=== PATIENT | female | born 1985 | race Caucasian/White ===

== ENCOUNTER 2016-11-21 20:51 | Emergency (ER) | payer BC ==
[2016-11-21 21:04] VITALS: BP 118/74
--- NOTE | 2016-11-21 21:16 | ER Document Report ---
HPI - HPI Patient complains to provider of: dental pain Onset: Other - Several days Onset/Duration: Gradual Pain Level: 5 Context: 31-year-old female with dental decay is complaining increased pain in the right upper molars. No fever or chills. No facial swelling. Associated Symptoms: None Exacerbated by: Denies Relieved by: Denies Similar symptoms previously: Yes Recently seen / treated by doctor: No - ROS ROS below otherwise negative: Yes Systems Reviewed and Negative: Yes All other systems reviewed and negative - DERM Skin Color: Normal Past Medical History - General Information source: Patient - Social History Smoking Status: Never Smoker Frequency of alcohol use: None Drug Abuse: None Family History: Reviewed & Not Pertinent Patient has suicidal ideation: No Patient has homicidal ideation: No - Medical History Medical History: Negative Renal/ Medical History: Denies: Hx Peritoneal Dialysis Surgical Hx: Negative Vertical Provider Document - CONSTITUTIONAL Agree With Documented VS: Yes Exam Limitations: No Limitations - INFECTION CONTROL TRAVEL OUTSIDE OF THE [place] IN LAST 30 DAYS: No - HEENT HEENT: Normocephalic Notes: Multiple decayed teeth with severe gingivitis top right molars no abscess palpated - NECK Neck: Supple. negative: Lymphadenopathy-Left, Lymphadenopathy-Right - RESPIRATORY O2 Sat by Pulse Oximetry: 99 - MUSCULOSKELETAL/EXTREMETIES Musculoskeletal/Extremeties: ISAK MCKEON - NEURO Level of Consciousness: Awake, Alert, Appropriate - DERM Integumentary: Warm, Dry, No Rash Course - Vital Signs Vital signs: Temp Pulse Resp BP Pulse Ox 99 F 68 18 118/74 99 11/21/16 21:02 11/21/16 21:02 11/21/16 21:02 11/21/16 21:02 11/21/16 21:02 Discharge - Discharge Clinical Impression: dental pain and decay Condition: Good Disposition: HOME, SELF-CARE Instructions: Penicillin V K ([facility]), Toothache ([facility]), Ultram ([facility]), Anti- Inflammatory Medication ([facility]), Dentist Additional Instructions: warm compess to er if worse see the dentist as soon as possible Please complete the patient satisfaction survey if you get one, and return it.. If you do not receive a survey, then you can go to the [facility] website, [email or web address] and place your comments about your very good care. Thank you very much. It was a pleasure being your medical provider today. Prescriptions: Ibuprofen [Motrin 800 mg Tablet] 800 mg PO Q8HP PRN #30 tablet PRN Reason: Penicillin V Potassium [Penicillin Vk 500 mg Tablet] 500 mg PO QID #40 tablet
[2016-11-21] MEDS ORDERED: BENZONATATE 100 MG CAPSULE PO ONE (21:24)
[2016-11-21] MEDS ORDERED: ONDANSETRON 4 MG TAB.RAPDIS PO ONE (21:25)
[2016-11-21] MEDS ORDERED: PENICILLIN V POTASSIUM 500 MG TABLET PO ONE (21:25)
[2016-11-21] MEDS ORDERED: IBUPROFEN 800 MG TABLET PO ONE (21:26)
[2016-11-21] MEDS ORDERED: TRAMADOL HCL 50 MG TABLET PO ONE (21:26)
[2016-11-21] MEDS ORDERED: LIDOCAINE 2% VISCOUS SOLN 20 ML UDCUP PO ONE (21:47)
== END 2016-11-21 21:58 | disposition home or self-care (01) ==
LOC: ER 20:51
DX: K08.89 Other specified disorders of teeth and supporting structures (principal); K02.9 Dental caries, unspecified
CPT/HCPCS: 99282; S0119; J3490

== ENCOUNTER → 2017-09-25 | Outpatient (CLI) | payer BC ==
--- NOTE | 2017-09-25 18:48 | RADIOLOGY REPORT (SQ) ---
EXAM DESCRIPTION: SHOULDER RIGHT 2 OR MORE VIEWS COMPLETED DATE/TIME: 09/25/2017 6:17 pm REASON FOR STUDY: INJURY OF SHOULDER RIGHT COMPARISON: None. NUMBER OF VIEWS: Three views. TECHNIQUE: Internal rotation, external rotation, and Y view images acquired of the right shoulder. LIMITATIONS: None. FINDINGS: MINERALIZATION: Normal. BONES: No acute fracture or dislocation. No worrisome bone lesions. JOINTS: No dislocation. VISUALIZED LUNGS AND RIBS: No pneumothorax. No rib fracture. SOFT TISSUES: No radiopaque foreign body. OTHER: No other significant finding. IMPRESSION: NO RADIOGRAPHIC EVIDENCE OF ACUTE INJURY. TECHNICAL DOCUMENTATION: JOB ID: [id number] [place]-72 2010 [employer]- All Rights Reserved Reading location - IP/workstation name: [email or web address]
== END ==
LOC: RAD 17:45
PROVIDERS: ATTEND Physician Assistant
DX: S49.91XA Unspecified injury of right shoulder and upper arm, initial encounter (principal); X58.XXXA Exposure to other specified factors, initial encounter; Y93.9 Activity, unspecified; Y92.9 Unspecified place or not applicable; Y99.9 Unspecified external cause status